=== PATIENT | female | born 1995 | race African-American/Black ===

== ENCOUNTER 2021-02-11 23:24 | Emergency (ER) | payer OTHER ==
[2021-02-11] MEDS ORDERED: SODIUM CHLORIDE 0.9% 500 ML INFUS.BAG IV ONE (23:55)
[2021-02-11] MEDS ORDERED: ACETAMINOPHEN 1000 MG/100 ML VIAL (NON FORMULARY) IVPB ONE (23:55)
[2021-02-12] MEDS ORDERED: ACETAMINOPHEN INJECTION 100 ML IVPB ONE (00:12)
[2021-02-12 00:26] VITALS: BMI 25.1
[2021-02-12 00:29] LABS: VENOUS BASE EXCESS -2.6 mmol/L (-2-2); VENOUS PCO2 32.8 mmHg (38-52); VENOUS PH 7.424 (7.310-7.410)
[2021-02-12 00:31] LABS: BASO % 0.2 % (0-2.0); HEMATOCRIT 35.4 % (32.4-45.2); HEMOGLOBIN 11.2 GM/dL (10.7-15.3); LYMPH % 9.2 % (8-40); MCH 23.7 pg (25.7-33.7); MCHC 31.6 g/dl (32.0-36.0); MEAN PLT VOLUME 9.4 fl (7.5-11.1); MONO % 3.6 % (3.8-10.2); PLATELET COUNT 205 K/MM3 (134-434); RBC 4.71 M/mm3 (3.60-5.2); RDW 18.7 % (11.6-15.6); WHITE BLOOD COUNT 6.2 K/mm3 (4.0-10.0)
[2021-02-12 00:44] LABS: INR 1.08 (0.83-1.09); PROTHROMBIN TIME (PATIENT) 13.2 SEC (9.7-13.0)
[2021-02-12 00:45] LABS: CHLORIDE 106 mmol/L (98-107); POTASSIUM 3.9 mmol/L (3.5-5.1); SODIUM 138 mmol/L (136-145)
[2021-02-12 00:46] LABS: ACTIVATED PTT 27.9 SECONDS (25.2-36.5)
[2021-02-12 00:47] LABS: CALCIUM 8.7 mg/dL (8.5-10.1)
[2021-02-12 00:48] LABS: ALBUMIN 3.4 g/dl (3.4-5.0); ANION GAP 9 MMOL/L (8-16); BLOOD UREA NITROGEN 12.2 mg/dL (7-18); CO2 23 mmol/L (21-32); GLUCOSE,RANDOM 177 mg/dL (74-106)
[2021-02-12 00:50] LABS: BILIRUBIN,DIRECT 0.1 mg/dL (0.0-0.2)
[2021-02-12 00:51] LABS: CREATININE 0.9 mg/dL (0.55-1.3); SGOT/AST 28 U/L (15-37); SGPT/ALT 20 U/L (13-61)
[2021-02-12 00:52] LABS: BILIRUBIN,TOTAL 0.2 mg/dL (0.2-1); LDH 328 U/L (84-246); TOT PROT 7.4 g/dl (6.4-8.2)
[2021-02-12 00:53] LABS: ALK PHOS 66 U/L (45-117)
[2021-02-12 01:27] LABS: LACTIC ACID 3.1 mmol/L (0.4-2.0)
[2021-02-12] MEDS ORDERED: SODIUM CHLORIDE 0.9% 500 ML INFUS.BAG IV ONE (01:35)
[2021-02-12 03:45] LABS: URINE APPEARANCE CLEAR; URINE BILIRUBIN NEGATIVE (NEGATIVE); URINE COLOR YELLOW; URINE GLUCOSE (UA) NEGATIVE (NEGATIVE); URINE KETONE NEGATIVE (NEGATIVE); URINE LEUK ESTERASE NEGATIVE (NEGATIVE); URINE NITRITE NEGATIVE (NEGATIVE); URINE PROTEIN TRACE (NEGATIVE); URINE UROBILINOGEN 0.2 mg/dL (0.2-1.0)
[2021-02-12 04:06] VITALS: BP 97/64; PULSE 83; TEMP 98.2
[2021-02-12 04:12] LABS: LACTIC ACID 2.2 mmol/L (0.4-2.0)
== END 2021-02-12 04:22 | disposition home or self-care (01) ==
LOC: JER 23:24
PROC: 3E033GC Introduction of Other Therapeutic Substance into Peripheral Vein, Percutaneous Approach (ICD-10-PCS; principal; 2021-02-11)
DX: U07.1 COVID-19 (principal)
CPT/HCPCS: 36415; 71046-TC-FY; 80053; 81003; 82248; 82550; 82553; 82728; 82803; 83605; 83615; 84484; 85025; 85610; 85730; 86140; 87040; 87086; 87804; 93005; 93010; 99285-25; C9803; J0131; U0003; U0005

== ENCOUNTER 2021-02-14 12:24 | Emergency (ER) | payer OTHER ==
[2021-02-14 12:35] VITALS: BMI 26.6
[2021-02-14] MEDS ORDERED: DEXAMETHASONE LIQUID 0.5 MG/5 ML PO ONE (12:55)
[2021-02-14] MEDS ORDERED: ALBUTEROL SO4 2.5/IPRATROPIUM 0.5 INH SOL 3 ML VIAL.NEB. NEB ONE (12:55)
[2021-02-14] MEDS ORDERED: SODIUM CHLORIDE FOR INHALATION 3 ML VIAL.NEB IH ONE (12:55)
[2021-02-14] MEDS ORDERED: DEXAMETHASONE SOD PHOSPHATE 10 MG/1 ML VIAL ONE (13:30)
[2021-02-14 14:32] VITALS: BP 117/78; PULSE 104; TEMP 99.4
== END 2021-02-14 14:38 | disposition home or self-care (01) ==
LOC: JCOVINFU 12:24 → JER 12:24
DX: U07.1 COVID-19 (principal); J12.82 Pneumonia due to coronavirus disease 2019; J98.01 Acute bronchospasm
CPT/HCPCS: 71046-TC-FY; 99283-25